=== PATIENT | male | born 1955 | race Caucasian/White ===

== ENCOUNTER 2019-09-09 19:38 | Inpatient (IN) ==
[2019-09-09] MEDS ORDERED: 0.9 % SODIUM CHLORIDE 1,000 ML IV ONE (19:55)
[2019-09-09] MEDS ORDERED: ALBUTEROL SULFATE 200 PUFF INHALER INH PRN ×2 (19:56→23:47)
--- NOTE | 2019-09-09 19:58 | Emergency Department Note ---
SOB HPI - General Chief Complaint: Shortness of Breath/Dyspnea Stated Complaint: increased cough and shortness of breathe Time Seen by Provider: 09/09/19 19:43 Source: patient Mode of arrival: ambulatory Limitations: no limitations - History of Present Illness 64-year-old male returns to the ER after coming in last night for worsening dyspnea. He was diagnosed with pneumonia and started on azithromycin. However he could not catch his breath and so came back tonight. Denies fever nausea vomiting. He does not smoke I reviewed the note from Dr. pritchett last night MD Complaint: shortness of breath - Related Data Home Medications Medication Instructions Recorded Confirmed nitroglycerin 0.4 mg sublingual 0.4 mg SUBLINGUAL Q5-15M PRN 02/22/19 09/06/19 tablet glucagon 1 mg injection kit 1 mg .ROUTE .COMPLEX 04/14/19 09/09/19 triamcinolone acetonide 55 mcg 1 spray INTRANASAL QDAY PRN 04/14/19 09/10/19 nasal spray aerosol Insulin Glargine,Hum.rec.anlog 40 unit SUBCUT QDAY 08/06/19 09/09/19 [Lantus Solostar U-100 Insulin] Previous Rx's Medication Instructions Recorded aspirin 81 mg tablet,delayed 81 mg PO QDAY #90 tab 04/27/19 release folic acid 1 mg tablet 1 mg PO QDAY #90 tab 04/27/19 albuterol sulfate 90 mcg/actuation 2 puff INHALATION Q6H PRN #8.5 g 05/01/19 aerosol inhaler carvedilol 25 mg tablet 25 mg PO BID #180 tab 06/20/19 insulin aspart U-100 100 unit/mL 3 unit SUB-Q TID #15 ml 06/20/19 (3 mL) subcutaneous pen lansoprazole 15 mg capsule,delayed 30 mg PO QDAY #60 cap 06/20/19 release losartan 100 mg tablet 100 mg PO QDAY #90 tab 06/20/19 paroxetine HCl 10 mg tablet 10 mg PO QHS #30 tab 06/20/19 pen needle, diabetic 32 gauge x See Rx Instructions .ROUTE 07/10/19" .MEDSUPPLY #100 each lancets 30 gauge See Rx Instructions .ROUTE 08/03/19 .MEDSUPPLY #100 each indomethacin 50 mg capsule 50 mg PO .COMPLEX #30 cap 08/25/19 furosemide 20 mg tablet 20 mg PO BID #60 tab 09/06/19 gabapentin 300 mg capsule 300 mg PO QHS #30 cap 09/06/19 hydrocodone 5 mg-acetaminophen 325 1 tab PO Q4H PRN #180 tab 09/06/19 mg tablet potassium chloride 10 mEq 10 meq PO BID #60 cap 09/06/19 capsule,extended release Azithromycin [Zithromax] 0 mg PO DAILY #6 tab 09/08/19 Ondansetron [Zofran ODT] 4 mg SL Q4-6HP PRN #10 tab 09/08/19 Allergies Allergy/AdvReac Type Severity Reaction Status Date / Time NEREYDA Inhibitors Allergy Severe Cough Verified 09/08/19 12:39 Aliskiren [From Valturna] Allergy Severe rash, Verified 09/08/19 12:39 throat swelling ciprofloxacin [From Cipro] Allergy Severe nausea/vomi Verified 09/08/19 12:39 tting valsartan [From Valturna] Allergy Severe rash, Verified 09/08/19 12:39 throat swelling fluticasone [From Flonase] Allergy Intermediate made Verified 09/08/19 12:39 patient sick bupropion [From Wellbutrin] Allergy Unknown Unknown Verified 09/08/19 12:39 Cnvnutn-Vml-Brz Reductase Allergy Unknown Unknown Verified 09/08/19 12:39 Inhibitor Review of Systems All systems ED: reviewed and negative except as stated. Past Medical History - Past Medical History Attestation: Yes: The following information was validated with the patient. [facility] Narrative: Family History (Last Reviewed 09/06/19 @ 14:20 by ELÍAS Pinzon) Father Lung cancer Mother CAD (coronary artery disease) Medical History (Last Reviewed 09/06/19 @ 14:20 by ELÍAS Pinzon) Left knee DJD (Chronic) Diverticulitis (Chronic) Osteoarthritis (Chronic) Allergic rhinitis (Chronic) Lipoma (Chronic) Anemia (Chronic) Erectile dysfunction (Chronic) Asthma (Chronic) Hypoglycemia (Chronic) Visual impairment (Chronic) Closed fracture of navicular bone of wrist (Chronic) Situational anxiety (Chronic) Muscle spasm (Chronic) Fatigue (Chronic) Carpal tunnel syndrome (Chronic) MRSA (methicillin resistant staph aureus) culture positive (Chronic) Panic attack (Chronic) DDD (degenerative disc disease), cervical (Chronic) Cervical radiculopathy (Chronic) Spondylolisthesis, thoracolumbar region (Chronic) DDD (degenerative disc disease), lumbosacral (Chronic) Spinal stenosis of lumbar region (Chronic) Squamous cell carcinoma in situ of skin (Chronic) Candidal dermatitis (Chronic) Hypertension (Chronic) Depression with anxiety (Chronic) Diabetes mellitus (Chronic) Hyperlipidemia (Chronic) Neoplasm of uncertain behavior of skin (Chronic) Encounter for long-term (current) use of insulin (Chronic) Past Surgical History (Last Reviewed 09/06/19 @ 14:20 by ELÍAS Pinzon) History of back surgery (Chronic) History of knee surgery (Chronic) - Social History smoking status: Never smoker Physical Exam Normocephalic atraumatic. Conjunctive are clear sclerae white nonicteric. No nasal discharge or congestion. Oropharynx is pink and moist. Neck is supple without lymphadenopathy or thyromegaly. Heart is with mild tachycardia. I cannot hear a murmur. Lungs are clear to auscultation but he does have an end expiratory wheeze. When he is talking his oxygen saturations dropped down into the high 80s and so he requires oxygen. Abdomen soft nontender nondistended. He is got trace to +1 pedal edema bilaterally. Alert and able to answer questions appropriately Limitations: no limitations Course Vital Signs Temperature 98.8 F 09/09/19 19:39 Pulse Rate 100 H 09/09/19 19:39 Respiratory Rate 22 09/09/19 19:39 Blood Pressure 191/68 09/09/19 19:39 Pulse Oximetry (%) 93 09/09/19 19:39 Temperature 98.8 F 09/09/19 19:39 Pulse Rate 102 H 09/10/19 02:01 Respiratory Rate 18 09/10/19 02:01 Blood Pressure 167/89 09/10/19 02:01 Pulse Oximetry (%) 97 09/10/19 02:01 Shortness of Breath/Dyspnea - Lab Data Lab results reviewed: Yes I reviewed the patient's lab results. Result diagrams: 09/09/19 20:05 09/10/19 00:10 Lab Results 09/09/19 09/09/19 09/09/19 Range/Units 20:05 20:05 20:05 WBC 15.9 H (4.50-11.00) K/mcL RBC 3.71 L (4.63-6.08) M/mcL Hgb 11.3 L (13.7-17.5) g/dL Hct 36.2 L (40.1-51.0) % MCV 97.6 (80.0-100.0) fL MCH 30.5 (26.0-34.0) pg MCHC 31.2 (31.0-36.0) g/dL RDW 13.9 (11.5-14.5) % Plt Count 273 (140-440) K/mcL MPV 9.9 (7.4-10.4) fL Gran % 87.2 H (38.0-78.0) % Lymph % (Auto) 5.7 L (15.5-49.0) % [place] % (Auto) 5.5 (1.0-12.0) % Eos % (Auto) 1.3 (0.0-7.0) % Baso % (Auto) 0.3 (0.0-2.0) % Gran # 13.88 H (1.80-8.00) K/mcL Lymph # (Auto) 0.90 L (1.50-4.80) K/mcL [place] # (Auto) 0.87 (0.10-0.90) K/mcL Eos # (Auto) 0.20 (0.00-0.70) K/mcL Baso # (Auto) 0.05 (0.00-0.30) K/mcL VBG Lactic Acid 1.3 (0.5-2.0) mmol/L Sodium 133 (133-145) mmol/L Potassium 4.3 (3.3-5.1) mmol/L Chloride 96 (96-108) mmol/L Carbon Dioxide 27 (22-30) mmol/L Anion Gap 10.0 (8-16) BUN 12 (8-23) mg/dl Creatinine 0.9 (0.7-1.2) mg/dl GFR Calculation 89 Glucose 189 H (70-105) mg/dL Calcium 8.6 (8.6-10.4) mg/dl Magnesium 2.2 (1.6-2.5) mg/dL Total Bilirubin 0.5 (0.0-1.0) mg/dL AST 54 H (0-37) U/l ALT 53 H (0-40) U/l Alkaline Phosphatase 124 H (39-117) U/L Troponin T (0-0.03) ng/ml NT-Pro-B Natriuret Pep (0-125) pg/ml Total Protein 7.0 (5.9-8.4) gm/dL Albumin 3.8 (3.2-5.2) gm/dL Globulin 3.2 (2.2-3.7) gm/dL Albumin/Globulin Ratio 1.2 (1.0-2.3) Lipase 13 (7-60) U/L Procalcitonin (<0.10) ng/mL 09/09/19 09/09/19 09/09/19 Range/Units 20:05 20:05 20:05 WBC (4.50-11.00) K/mcL RBC (4.63-6.08) M/mcL Hgb (13.7-17.5) g/dL Hct (40.1-51.0) % MCV (80.0-100.0) fL MCH (26.0-34.0) pg MCHC (31.0-36.0) g/dL RDW (11.5-14.5) % Plt Count (140-440) K/mcL MPV (7.4-10.4) fL Gran % (38.0-78.0) % Lymph % (Auto) (15.5-49.0) % [place] % (Auto) (1.0-12.0) % Eos % (Auto) (0.0-7.0) % Baso % (Auto) (0.0-2.0) % Gran # (1.80-8.00) K/mcL Lymph # (Auto) (1.50-4.80) K/mcL [place] # (Auto) (0.10-0.90) K/mcL Eos # (Auto) (0.00-0.70) K/mcL Baso # (Auto) (0.00-0.30) K/mcL VBG Lactic Acid (0.5-2.0) mmol/L Sodium (133-145) mmol/L Potassium (3.3-5.1) mmol/L Chloride (96-108) mmol/L Carbon Dioxide (22-30) mmol/L Anion Gap (8-16) BUN (8-23) mg/dl Creatinine (0.7-1.2) mg/dl GFR Calculation Glucose (70-105) mg/dL Calcium (8.6-10.4) mg/dl Magnesium (1.6-2.5) mg/dL Total Bilirubin (0.0-1.0) mg/dL AST (0-37) U/l ALT (0-40) U/l Alkaline Phosphatase (39-117) U/L Troponin T < 0.01 (0-0.03) ng/ml NT-Pro-B Natriuret Pep 509.5 H (0-125) pg/ml Total Protein (5.9-8.4) gm/dL Albumin (3.2-5.2) gm/dL Globulin (2.2-3.7) gm/dL Albumin/Globulin Ratio (1.0-2.3) Lipase (7-60) U/L Procalcitonin 0.12 (<0.10) ng/mL 09/10/19 Range/Units 00:10 WBC (4.50-11.00) K/mcL RBC (4.63-6.08) M/mcL Hgb (13.7-17.5) g/dL Hct (40.1-51.0) % MCV (80.0-100.0) fL MCH (26.0-34.0) pg MCHC (31.0-36.0) g/dL RDW (11.5-14.5) % Plt Count (140-440) K/mcL MPV (7.4-10.4) fL Gran % (38.0-78.0) % Lymph % (Auto) (15.5-49.0) % [place] % (Auto) (1.0-12.0) % Eos % (Auto) (0.0-7.0) % Baso % (Auto) (0.0-2.0) % Gran # (1.80-8.00) K/mcL Lymph # (Auto) (1.50-4.80) K/mcL [place] # (Auto) (0.10-0.90) K/mcL Eos # (Auto) (0.00-0.70) K/mcL Baso # (Auto) (0.00-0.30) K/mcL VBG Lactic Acid (0.5-2.0) mmol/L Sodium 136 (133-145) mmol/L Potassium 4.2 (3.3-5.1) mmol/L Chloride 99 (96-108) mmol/L Carbon Dioxide 27 (22-30) mmol/L Anion Gap 10.0 (8-16) BUN 11 (8-23) mg/dl Creatinine 0.7 (0.7-1.2) mg/dl GFR Calculation 99 Glucose 57 L (70-105) mg/dL Calcium 8.3 L (8.6-10.4) mg/dl Magnesium (1.6-2.5) mg/dL Total Bilirubin 0.7 (0.0-1.0) mg/dL AST 62 H (0-37) U/l ALT 53 H (0-40) U/l Alkaline Phosphatase 109 (39-117) U/L Troponin T (0-0.03) ng/ml NT-Pro-B Natriuret Pep (0-125) pg/ml Total Protein 6.9 (5.9-8.4) gm/dL Albumin 3.7 (3.2-5.2) gm/dL Globulin 3.2 (2.2-3.7) gm/dL Albumin/Globulin Ratio 1.2 (1.0-2.3) Lipase (7-60) U/L Procalcitonin (<0.10) ng/mL - Radiology Data Radiology results reviewed: Yes I reviewed the patient's radiology results. Chest x-ray is essentially unchanged from yesterday-it is compatible with a COVID pneumonia - EKG Data EKG attestation: Yes I reviewed and interpreted this EKG., Yes There are no EKG findings of acute coronary syndrome EKG results narrative: ST segment elevation is upsloping is noted in the anterior leads. However this does not meet criteria for STEMI. Likely benign early repolarization. Reviewed EKGs from yesterday. Today's EKG shows similar ST morphology in the septal anterolateral leads-V1 to V6. Today's EKG could be slightly improved Disposition Pt seen by PORTFOLIO MANAGER/PA only: No Clinical Impression: Pneumonia due to COVID-19 virus, Hypoxia Summary: COVID-19 testing is pending. Will order respiratory panel. He is requiring oxygen now and so will require admission. Repeat x-ray and laboratory. Therapeutic trial of albuterol inhaler but not nebulizer Albuterol inhaler seem to help. Arterial blood gas shows hyperventilation. EKG shows repolarization abnormality, but actually looks improved from yesterday-we will order troponin and BNP though just to be sure-troponin was normal yesterday. Chest x-ray is again compatible with a COVID pneumonia. Laboratory shows leukocytosis Discussed findings with patient and with hospitalist Dr. bella. He agreed to accept the patient for further care and evaluation in the hospital Disposition: Xfer As Inpt ([facility]) Condition: Serious
[2019-09-09 21:31] LABS: ALT/SGPT 53 U/l (0-40); AST/SGOT 54 U/l (0-37); Albumin 3.8 gm/dL (3.2-5.2); Albumin/Globulin Ratio 1.2 (1.0-2.3); Alkaline Phosphatase 124 U/L (39-117); Bilirubin,Total 0.5 mg/dL (0.0-1.0); Blood Urea Nitrogen 12 mg/dl (8-23); Calcium 8.6 mg/dl (8.6-10.4); Carbon Dioxide 27 mmol/L (22-30); Chloride 96 mmol/L (96-108); Globulin 3.2 gm/dL (2.2-3.7); Glomerular Filtration Rate 89; Glucose 189 mg/dL (70-105)
[2019-09-09 22:10] LABS: Basophils # (Auto) 0.05 K/mcL (0.00-0.30); Basophils % (Auto) 0.3 % (0.0-2.0); Eosinophils % (Auto) 1.3 % (0.0-7.0); Granulocytes % (Auto) 87.2 % (38.0-78.0); Hematocrit 36.2 % (40.1-51.0); Hemoglobin 11.3 g/dL (13.7-17.5); Lymphocytes % (Auto) 5.7 % (15.5-49.0); Mean Cell Volume 97.6 fL (80.0-100.0); Mean Corpuscular HGB Conc 31.2 g/dL (31.0-36.0); Mean Platelet Volume 9.9 fL (7.4-10.4); Monocytes # (Auto) 0.87 K/mcL (0.10-0.90); Monocytes % (Auto) 5.5 % (1.0-12.0); Platelet Count 273 K/mcL (140-440); RBC 3.71 M/mcL (4.63-6.08); Red Cell Distribution Width 13.9 % (11.5-14.5); WBC 15.9 K/mcL (4.50-11.00)
[2019-09-09 22:52] LABS: proBNP 509.5 pg/ml (0-125)
[2019-09-09] MEDS ORDERED: DEXTROSE 31 GM ORAL.SUSP PO PRN (23:37)
[2019-09-09] MEDS ORDERED: PROMETHAZINE 25 MG TABLET PO PRN (23:37)
[2019-09-09] MEDS ORDERED: DEXTROSE 50% 50 ML VIAL IV PRN (23:37)
[2019-09-09] MEDS ORDERED: cefTRIAXone 2 GM in DEXTROSE 5% IN WATER 50 ML IV SCH (23:45)
[2019-09-09] MEDS ORDERED: 0.9 % SODIUM CHLORIDE 1,000 ML IV SCH (23:45)
[2019-09-09] MEDS ORDERED: AZITHROMYCIN 500 MG in DEXTROSE 5% IN WATER 250 ML IV SCH (23:45)
[2019-09-09] MEDS ORDERED: METOPROLOL TARTRATE 25 MG TABLET PO SCH (23:57)
[2019-09-09] MEDS ORDERED: hydrALAZINE 20 MG/ML VIAL IV PRN (23:58)
--- NOTE | 2019-09-10 00:14 | Internal Med History&Physical ---
Medical - H&P: [facility] Patient information: Note initiated : 09/10/19 at 12:11 am Service Date, if different from initiated Date: [] Patient: Tyler Segovia 64 y/o M admitted on for increased cough and shortness of breath. Chief Complaint: [SOB x 2 days] History of present illness: Patient is a 64-year-old male with a history diabetes, asthma, high blood pressure, and depression who presented to the ER due to shortness of breath. Patient states that he has been having shortness of breath and sore throat over the past 2 days associated with cough with small amount of greenish sputum and voice change. He visited the ER yesterday and was diagnosed with pneumonia. He was discharged to home from the ER with azithromycin. He came back today because of worsening of shortness of breath. In the ER, she was found to have oxygen desaturation, 80+% when he is talking. When I saw this patient in the ER, other than symptoms mentioned above, he denied headache, dizziness, chest pain, abdominal pain, nausea, vomiting, or dysuria. Review of systems: Positive for the symptoms in HP all other systems were reviewed and are negative. Medical - H&P: PMH Medical history: diabetes, asthma, high blood pressure, and depression Family history: reviewed and not pertinent (Father had lung cancer; mother had CAD) Have you smoked in the last 12 months: No Drug use: none Alcohol use: none Medical - H&P: Meds Home Medications Medication Instructions Recorded Confirmed Type nitroglycerin 0.4 mg sublingual 0.4 mg SUBLINGUAL Q5-15M PRN 02/22/19 09/06/19 History tablet glucagon 1 mg injection kit 1 mg .ROUTE .COMPLEX 04/14/19 09/09/19 History triamcinolone acetonide 55 mcg 1 spray INTRANASAL QDAY PRN 04/14/19 09/06/19 History nasal spray aerosol aspirin 81 mg tablet,delayed 81 mg PO QDAY #90 tab 04/27/19 09/09/19 Rx release folic acid 1 mg tablet 1 mg PO QDAY #90 tab 04/27/19 09/09/19 Rx albuterol sulfate 90 mcg/actuation 2 puff INHALATION Q6H PRN #8.5 g 05/01/19 09/09/19 Rx aerosol inhaler carvedilol 25 mg tablet 25 mg PO BID #180 tab 06/20/19 09/09/19 Rx insulin aspart U-100 100 unit/mL 3 unit SUB-Q TID #15 ml 06/20/19 09/09/19 Rx (3 mL) subcutaneous pen lansoprazole 15 mg capsule,delayed 30 mg PO QDAY #60 cap 06/20/19 09/06/19 Rx release losartan 100 mg tablet 100 mg PO QDAY #90 tab 06/20/19 09/06/19 Rx paroxetine HCl 10 mg tablet 10 mg PO QHS #30 tab 06/20/19 09/06/19 Rx pen needle, diabetic 32 gauge x See Rx Instructions .ROUTE 07/10/19 09/06/19 Rx 5/32" .MEDSUPPLY #100 each lancets 30 gauge See Rx Instructions .ROUTE 08/03/19 09/09/19 Rx .MEDSUPPLY #100 each Insulin Glargine,Hum.rec.anlog 40 unit SUBCUT QDAY 08/06/19 09/09/19 History [Lantus Solostar U-100 Insulin] indomethacin 50 mg capsule 50 mg PO .COMPLEX #30 cap 08/25/19 09/09/19 Rx furosemide 20 mg tablet 20 mg PO BID #60 tab 09/06/19 09/09/19 Rx gabapentin 300 mg capsule 300 mg PO QHS #30 cap 09/06/19 09/09/19 Rx hydrocodone 5 mg-acetaminophen 325 1 tab PO Q4H PRN #180 tab 09/06/19 09/09/19 Rx mg tablet potassium chloride 10 mEq 10 meq PO BID #60 cap 09/06/19 09/06/19 Rx capsule,extended release Azithromycin [Zithromax] 0 mg PO DAILY #6 tab 09/08/19 09/09/19 Rx Ondansetron [Zofran ODT] 4 mg SL Q4-6HP PRN #10 tab 09/08/19 Rx Allergies Allergy/AdvReac Type Severity Reaction Status Date / Time NEREYDA Inhibitors Allergy Severe Cough Verified 09/08/19 12:39 Aliskiren [From Valturna] Allergy Severe rash, Verified 09/08/19 12:39 throat swelling ciprofloxacin [From Cipro] Allergy Severe nausea/vomi Verified 09/08/19 12:39 tting valsartan [From Valturna] Allergy Severe rash, Verified 09/08/19 12:39 throat swelling fluticasone [From Flonase] Allergy Intermediate made Verified 09/08/19 12:39 patient sick bupropion [From Wellbutrin] Allergy Unknown Unknown Verified 09/08/19 12:39 Ininplo-Iau-Wgg Reductase Allergy Unknown Unknown Verified 09/08/19 12:39 Inhibitor Medical - H&P: Exam - Constitutional Vitals: Temp Pulse Resp BP Pulse Ox 98.8 F 105 H 21 161/67 100 09/09/19 19:39 09/09/19 22:49 09/09/19 22:49 09/09/19 22:16 09/09/19 22:49 - Other Additional findings: General - No acute distress Eyes - PERRLA, EOM intact ENT no rhinorrhea, no noticeable or palpable swelling, no redness or rash around throat or on face Neck supple, no JVD, no thyromegaly. course voice Respiratory: mild wheezing and rhonchi. Cardiovascular - RRR no m/r/g, GI - Normal bowel sounds, no distended, soft. Extremeties - pitting edema+ in both legs; No cyanosis or clubbing Hemo/lymphatic/immune no lymphadenopathy Neurological Alert and oriented x 3, no focal neurological deficits. Psychiatry flat affect Medical - H&P: Reslt - Labs CBC & Chem 7: 09/09/19 20:05 09/09/19 20:05 Labs: Short CBC 09/09/19 Range/Units 20:05 WBC 15.9 H (4.50-11.00) K/mcL Hgb 11.3 L (13.7-17.5) g/dL Hct 36.2 L (40.1-51.0) % Plt Count 273 (140-440) K/mcL BMP 09/09/19 20:05 Sodium 133 Potassium 4.3 Chloride 96 Carbon Dioxide 27 BUN 12 Creatinine 0.9 Glucose 189 H Calcium 8.6 Cardiac Enzymes 09/09/19 Range/Units 20:05 Troponin T < 0.01 (0-0.03) ng/ml Liver Function 09/09/19 Range/Units 20:05 Total Bilirubin 0.5 (0.0-1.0) mg/dL AST 54 H (0-37) U/l ALT 53 H (0-40) U/l Alkaline Phosphatase 124 H (39-117) U/L Albumin 3.8 (3.2-5.2) gm/dL Medical - H&P: A/P - Narrative A/P Narrative: Assessment: 1. Acute hypoxic respiratory failure 2. Possible pneumonia, Covid 19? 3. Hx of asthma 4. DM 5. HTN 6. Elevation of liver enzymes 7. Depression 8. CHF? Plan: 1. In the ER, she was found to have oxygen desaturation, 80+% when he is talking. Pulse ox ox therapy Albuterol aerosol inhaler 2. CXR - possible pneumonia - Covid 19? Covid 19 was sent yesterday Respiratory panel MRSA screen Procalcitonin 0.12 CRP troponin negative yesterday and today Blood culture and sputum culture Ceftriaxone and azithromycin 3. Diabetic diet Continue Lantus 40 mg daily Insulin sliding scale Adjust insulin based blood glucose levels Hemoglobin A1c 4. Repeat the liver enzymes in the morning 7. Continue home medication paroxetine for depression 8. Continue losartan 100 mg daily. Carvedilol is on hold. Added metoprolol 12.5 mg twice daily and hydralazine as needed 9. BNP 509. Patient home medications including Lasix which he is on hold Echocardiogram Intake and output Daily weight 10. DVT prophylaxis: Lovenox CODE STATUS: Full
[2019-09-10] MEDS ORDERED: DEXTROSE 31 GM ORAL.SUSP PO PRN (00:23)
[2019-09-10] MEDS ORDERED: PROMETHAZINE 25 MG TABLET PO PRN (00:23)
[2019-09-10] MEDS ORDERED: ALBUTEROL SULFATE 200 PUFF INHALER INH PRN (00:23)
[2019-09-10] MEDS ORDERED: DEXTROSE 50% 50 ML VIAL IV PRN (00:23)
[2019-09-10 01:31] LABS: ALT/SGPT 53 U/l (0-40); AST/SGOT 62 U/l (0-37); Albumin 3.7 gm/dL (3.2-5.2); Albumin/Globulin Ratio 1.2 (1.0-2.3); Alkaline Phosphatase 109 U/L (39-117); Bilirubin,Total 0.7 mg/dL (0.0-1.0); Blood Urea Nitrogen 11 mg/dl (8-23); Calcium 8.3 mg/dl (8.6-10.4); Carbon Dioxide 27 mmol/L (22-30); Chloride 99 mmol/L (96-108); Globulin 3.2 gm/dL (2.2-3.7); Glomerular Filtration Rate 99; Glucose 57 mg/dL (70-105)
[2019-09-10] MEDS: hydrALAZINE 20 MG/ML VIAL IV PRN ×2 (05:31→16:03)
[2019-09-10] MEDS ORDERED: hydrALAZINE 20 MG/ML VIAL ONE (05:32)
[2019-09-10 05:35] LABS: ALT/SGPT 50 U/l (0-40); AST/SGOT 55 U/l (0-37); Albumin 3.7 gm/dL (3.2-5.2); Albumin/Globulin Ratio 1.3 (1.0-2.3); Alkaline Phosphatase 105 U/L (39-117); Bilirubin,Total 0.6 mg/dL (0.0-1.0); Blood Urea Nitrogen 9 mg/dl (8-23); Calcium 8.2 mg/dl (8.6-10.4); Carbon Dioxide 29 mmol/L (22-30); Chloride 98 mmol/L (96-108); Globulin 2.9 gm/dL (2.2-3.7); Glomerular Filtration Rate 94; Glucose 110 mg/dL (70-105)
[2019-09-10] MEDS: 0.9 % SODIUM CHLORIDE 10 ML SYRINGE IV SCH ×3 (05:36→22:10)
[2019-09-10] MEDS ORDERED: 0.9 % SODIUM CHLORIDE 10 ML SYRINGE IV SCH (06:00)
[2019-09-10] MEDS ORDERED: INSULIN LISPRO 1 UNIT/0.01 ML UNIT SQ SCH (07:30)
[2019-09-10] MEDS ORDERED: PANTOPRAZOLE 40 MG TABLET PO SCH (07:30)
--- NOTE | 2019-09-10 07:42 | XRay Report ---
INDICATION: dyspnea TECHNIQUE: AP portable upright chest x-ray COMPARISON: None FINDINGS: Lungs:Inspiration is suboptimal. Present examination demonstrates mild right perihilar and basilar parenchymal density. No focal parenchymal consolidation. Pneumonia is possible. Follow-up PA and lateral chest x-ray or CT scan recommended if clinically appropriate. There is no focal pulmonary parenchymal mass Heart, vascular:No significant cardiomegaly. Pulmonary vascularity is normal. No pulmonary edema or pulmonary congestion Mediastinum, rao:No mediastinal widening. No hilar mass Pleura:No pleural fluid. No pleural-based mass or calcification Skeletal:Negative. IMPRESSION: 1. Suboptimal inspiration 2. Possible subtle right lung infiltrates. Recommend follow-up as above Interpreted and Authenticated by: Jaciel Balderrama 09/10/19
[2019-09-10] MEDS: INSULIN LISPRO 1 UNIT/0.01 ML UNIT SQ SCH ×4 (07:47→22:10)
[2019-09-10] MEDS: FOLIC ACID 1 MG TABLET PO SCH (08:29)
[2019-09-10] MEDS: INSULIN GLARGINE, HUMAN 1 UNIT/0.01 ML SQ SCH (08:29)
[2019-09-10] MEDS: amLODIPine 5 MG TABLET PO SCH (08:29)
[2019-09-10] MEDS: DOCUSATE SODIUM 100 MG CAPSULE PO SCH ×2 (08:29→21:39)
[2019-09-10] MEDS: LOSARTAN 50 MG TABLET PO SCH (08:30)
[2019-09-10] MEDS: METOPROLOL TARTRATE 25 MG TABLET PO SCH ×2 (08:30→21:38)
[2019-09-10] MEDS: PANTOPRAZOLE 40 MG TABLET PO SCH (08:30)
[2019-09-10] MEDS: ASPIRIN 81 MG TAB.CHEW PO SCH (08:30)
[2019-09-10] MEDS: MUPIROCIN OINT 2% 22GM NARES SCH ×2 (08:30→21:39)
[2019-09-10] MEDS: ENOXAPARIN 40 MG/0.4 ML SYRINGE SQ SCH (08:30)
[2019-09-10] MEDS ORDERED: METOPROLOL TARTRATE 25 MG TABLET PO SCH (09:00)
[2019-09-10] MEDS ORDERED: LOSARTAN POTASSIUM 100 MG PO SCH (09:00)
[2019-09-10] MEDS ORDERED: NON FORMULARY MEDICATION 1 DOSE MISCELL (Aspirin [St. Joseph Aspirin Ec] 81 MG) PO SCH (09:00)
[2019-09-10] MEDS ORDERED: FOLIC ACID 1 MG TABLET PO SCH (09:00)
[2019-09-10] MEDS ORDERED: ENOXAPARIN 40 MG/0.4 ML SYRINGE SQ SCH (09:00)
[2019-09-10] MEDS ORDERED: DOCUSATE SODIUM 100 MG CAPSULE PO SCH (09:00)
[2019-09-10] MEDS ORDERED: BENZONATATE 100 MG CAPSULE PO PRN (09:27)
[2019-09-10] MEDS: POTASSIUM CHLORIDE 10 MEQ TABLET PO SCH ×3 (10:49→17:54)
[2019-09-10] MEDS ORDERED: IOPAMIDOL 100 ML BOTTLE IV ONE (11:26)
--- NOTE | 2019-09-10 12:24 | Cat Scan Report ---
INDICATION: difficulty swallowing, pain in neck COMPARISON: None TECHNIQUE: Axial contrast enhanced images through the neck. Sagittally and coronally reformatted images. Aml Isovue 370 injected intravenously. FINDINGS: Vascular:Common carotid arteries and internal carotid arteries are patent bilaterally. No significant atherosclerotic calcification or evidence for stenosis. There is no dissection. Internal jugular veins are patent Lymphatic:No pathologic lymphadenopathy. Internal jugular chains are negative. No supraclavicular adenopathy Mucosa:No mucosal mass. Glottis and epiglottis are normal. The glottic soft tissues are negative. Nasopharynx, oropharynx, hypopharynx are negative. No peritonsillar mass or evidence for abscess Salivary glands:Parotid glands and submandibular glands are negative bilaterally. No focal mass. No evidence for sialoadenitis. Soft Tissue:No solid or cystic soft tissue mass. No abscess. No focal abnormality Lung Apices:No pulmonary parenchymal density. No pneumothorax. No focal abnormality. Thyroid:Negative. No detectable nodule Musculoskeletal:Previous anterior discectomy and spinal fusion from C3 through C5. Degenerative disc disease at C5-6, C6-7. No fracture. No lytic lesion. Paranasal sinuses and temporal bones: Temporal bones are negative. No fracture. No mastoiditis. Incidental note is made of a small retention cyst or polyp in the left maxillary sinus. Maxillary sinuses are otherwise negative IMPRESSION: Negative CT scan of the soft tissue neck. There is no mass or abscess. No acute abnormality The exam was performed using radiation dose optimization techniques including, but not limited to, automated exposure control, adjustment of the mA and/or kV according to patient size and use of iterative reconstruction technique. Interpreted and Authenticated by: Jaciel Balderrama 09/10/19
[2019-09-10] MEDS: cefTRIAXone 2 GM in DEXTROSE 5% IN WATER 50 ML IV SCH (15:12)
[2019-09-10] MEDS: AZITHROMYCIN 500 MG in DEXTROSE 5% IN WATER 250 ML IV SCH (15:55)
[2019-09-10] MEDS ORDERED: 0.9 % SODIUM CHLORIDE 500 ML IV ONE (20:56)
[2019-09-10] MEDS ORDERED: GABAPENTIN 300 MG CAPSULE PO SCH (21:00)
[2019-09-10] MEDS ORDERED: PAROXETINE HCL 10 MG PO SCH (21:00)
[2019-09-10] MEDS: PARoxetine 20 MG TABLET PO SCH (21:35)
[2019-09-10] MEDS: GABAPENTIN 300 MG CAPSULE PO SCH (21:39)
[2019-09-10 23:04] LABS: Basophils # (Auto) 0.05 K/mcL (0.00-0.30); Basophils % (Auto) 0.2 % (0.0-2.0); Eosinophils # (Auto) 0.11 K/mcL (0.00-0.70); Eosinophils % (Auto) 0.5 % (0.0-7.0); Granulocytes % (Auto) 90.3 % (38.0-78.0); Hemoglobin 10.7 g/dL (13.7-17.5); Lymphocytes # (Auto) 0.57 K/mcL (1.50-4.80); Lymphocytes % (Auto) 2.3 % (15.5-49.0); Mean Cell Volume 105.1 fL (80.0-100.0); Mean Corpuscular HGB Conc 30.6 g/dL (31.0-36.0); Mean Platelet Volume 10.5 fL (7.4-10.4); Monocytes # (Auto) 1.63 K/mcL (0.10-0.90); Monocytes % (Auto) 6.7 % (1.0-12.0); Platelet Count 252 K/mcL (140-440); RBC 3.33 M/mcL (4.63-6.08); Red Cell Distribution Width 14.7 % (11.5-14.5); WBC 24.4 K/mcL (4.50-11.00)
[2019-09-10] MEDS ORDERED: cefTRIAXone 2 GM in DEXTROSE 5% IN WATER 50 ML IV SCH (23:45)
[2019-09-10] MEDS ORDERED: AZITHROMYCIN 500 MG in DEXTROSE 5% IN WATER 250 ML IV SCH (23:45)
[2019-09-11 05:27] LABS: Basophils # (Auto) 0.04 K/mcL (0.00-0.30); Basophils % (Auto) 0.3 % (0.0-2.0); Eosinophils # (Auto) 0.28 K/mcL (0.00-0.70); Eosinophils % (Auto) 1.8 % (0.0-7.0); Granulocytes % (Auto) 84.5 % (38.0-78.0); Hematocrit 34.2 % (40.1-51.0); Hemoglobin 10.7 g/dL (13.7-17.5); Lymphocytes # (Auto) 0.91 K/mcL (1.50-4.80); Lymphocytes % (Auto) 5.8 % (15.5-49.0); Mean Cell Volume 99.7 fL (80.0-100.0); Mean Corpuscular HGB Conc 31.3 g/dL (31.0-36.0); Mean Platelet Volume 10.4 fL (7.4-10.4); Monocytes # (Auto) 1.19 K/mcL (0.10-0.90); Monocytes % (Auto) 7.6 % (1.0-12.0); Platelet Count 241 K/mcL (140-440); RBC 3.43 M/mcL (4.63-6.08); Red Cell Distribution Width 14.5 % (11.5-14.5); WBC 15.7 K/mcL (4.50-11.00)
[2019-09-11] MEDS: 0.9 % SODIUM CHLORIDE 10 ML SYRINGE IV SCH ×3 (05:27→21:32)
[2019-09-11 05:48] LABS: ALT/SGPT 40 U/l (0-40); AST/SGOT 35 U/l (0-37); Albumin 3.4 gm/dL (3.2-5.2); Alkaline Phosphatase 111 U/L (39-117); Bilirubin,Total 0.6 mg/dL (0.0-1.0); Blood Urea Nitrogen 10 mg/dl (8-23); Calcium 8.6 mg/dl (8.6-10.4); Carbon Dioxide 27 mmol/L (22-30); Chloride 98 mmol/L (96-108); Globulin 3.3 gm/dL (2.2-3.7); Glomerular Filtration Rate 99; Glucose 169 mg/dL (70-105)
[2019-09-11] MEDS: PANTOPRAZOLE 40 MG TABLET PO SCH (07:03)
[2019-09-11] MEDS: INSULIN LISPRO 1 UNIT/0.01 ML UNIT SQ SCH ×7 (08:00→21:31)
[2019-09-11] MEDS: ALBUTEROL SULFATE 200 PUFF INHALER INH PRN ×2 (08:01→17:45)
[2019-09-11] MEDS: cefTRIAXone 2 GM in DEXTROSE 5% IN WATER 50 ML IV SCH (08:56)
[2019-09-11] MEDS: INSULIN GLARGINE, HUMAN 1 UNIT/0.01 ML SQ SCH (08:57)
[2019-09-11] MEDS: MUPIROCIN OINT 2% 22GM NARES SCH ×2 (08:58→21:31)
[2019-09-11] MEDS: ENOXAPARIN 40 MG/0.4 ML SYRINGE SQ SCH (08:58)
[2019-09-11] MEDS: METOPROLOL TARTRATE 25 MG TABLET PO SCH ×2 (08:58→21:31)
[2019-09-11] MEDS: ASPIRIN 81 MG TAB.CHEW PO SCH (08:58)
[2019-09-11] MEDS: FOLIC ACID 1 MG TABLET PO SCH (08:58)
[2019-09-11] MEDS: amLODIPine 5 MG TABLET PO SCH (08:58)
[2019-09-11] MEDS: DOCUSATE SODIUM 100 MG CAPSULE PO SCH ×2 (08:58→21:31)
[2019-09-11] MEDS: LOSARTAN 50 MG TABLET PO SCH (08:58)
[2019-09-11] MEDS: guaiFENesin/CODEINE 10 ML UDC PO PRN ×3 (09:17→23:58)
[2019-09-11] MEDS ORDERED: HYDROcodone/APAP 5/325MG TABLET PO PRN (09:26)
[2019-09-11] MEDS ORDERED: ONDANSETRON 4 MG ODT TABLET SL PRN (09:26)
--- NOTE | 2019-09-11 09:26 | Internal Med Progress Note ---
Medical - PN: Subj Patient information: Note initiated : 09/11/19 at 9:21 am Service Date, if different from initiated Date: [] Patient: Tyler Segovia 64 y/o M admitted on 09/10/19 for increased cough and shortness of breath. Chief Complaint: [] Interval history: Patient is a 64-year-old male with a history diabetes, asthma, high blood pressure, and depression who presented to the ER due to shortness of breath. Patient states that he has been having shortness of breath and sore throat over the past 2 days associated with cough with small amount of greenish sputum and voice change. He visited the ER yesterday and was diagnosed with pneumonia. He was discharged to home from the ER with azithromycin. He came back today because of worsening of shortness of breath. In the ER, she was found to have oxygen desaturation, 80+% when he is talking. When I saw this patient in the ER, other than symptoms mentioned above, he denied headache, dizziness, chest pain, abdominal pain, nausea, vomiting, or dysuria. 09/10-patient clinically improved. Improved dysphagia/neck pain and able to swallow better. Stable hemodynamics and vitals. CT soft tissue neck no evidence of abscess. White count downtrending from 24.4-15.7. GPC/GNR sputum exam. LFTs downtrending. On 1 L oxygen. Echo pending. COVID pending. - Constitutional Vitals: Vital Signs Temp Pulse Resp BP Pulse Ox 97.7 F 75 24 H 180/92 94 09/11/19 08:01 09/11/19 08:11 09/11/19 08:11 09/11/19 08:01 09/11/19 08:11 Period Temp Pulse Resp BP Sys/Jansen Pulse Ox Last 24 Hr 97.2 F-99.4 F 68-97 16-34 134-184/59-119 92-100 Intake and Output 09/10/19 09/11/19 09/11/19 21:59 05:59 13:59 Intake Total 660 300 Output Total 1700 550 Balance -1040 -250 Weight 254 lb 14.4 oz Intake & Output: Intake & Output 09/10/19 09/11/19 09/11/19 21:59 05:59 13:59 Intake Total 660 300 Output Total 1700 550 Balance -1040 -250 Weight 254 lb 14.4 oz Intake: IV 300 Zithromax 500 mg In Dextrose 5% 250 in Water 250 ml @ 250 mls/hr IV Q24H [facility] Rx#:[id number] Rocephin 2 gm In Dextrose 5% in 50 Water 50 ml @ 100 mls/hr IV Q24H [facility] Rx#:[id number] Oral 360 300 Output: Void Amount 1700 550 Other: Urine Appearance Clear Urine Color Bright Yellow Urine Odor Normal General appearance: no acute distress Exam: No telemetry events Alert oriented Hoarse voice Nondistended abdomen No anxiety Medical - PN: Obj Da - Labs CBC & Chem 7: 09/11/19 04:15 09/11/19 04:15 Labs: Abnormal Lab Results 09/11/19 09/11/19 09/10/19 04:15 04:15 03:50 WBC 15.7 H 24.4 H RBC 3.43 L 3.33 L Hgb 10.7 L 10.7 L Hct 34.2 L 35.0 L MCV 105.1 H MCHC 30.6 L RDW 14.7 H MPV 10.5 H Gran % 84.5 H 90.3 H Lymph % (Auto) 5.8 L 2.3 L Gran # 13.23 H 22.07 H Lymph # (Auto) 0.91 L 0.57 L [place] # (Auto) 1.19 H 1.63 H Glucose 169 H Calcium AST ALT Alkaline Phosphatase NT-Pro-B Natriuret Pep 09/10/19 09/10/19 09/09/19 03:50 00:10 20:05 WBC RBC Hgb Hct MCV MCHC RDW MPV Gran % Lymph % (Auto) Gran # Lymph # (Auto) [place] # (Auto) Glucose 110 H 57 L Calcium 8.2 L 8.3 L AST 55 H 62 H ALT 50 H 53 H Alkaline Phosphatase NT-Pro-B Natriuret Pep 509.5 H 09/09/19 09/09/19 20:05 20:05 WBC 15.9 H RBC 3.71 L Hgb 11.3 L Hct 36.2 L MCV MCHC RDW MPV Gran % 87.2 H Lymph % (Auto) 5.7 L Gran # 13.88 H Lymph # (Auto) 0.90 L [place] # (Auto) Glucose 189 H Calcium AST 54 H ALT 53 H Alkaline Phosphatase 124 H NT-Pro-B Natriuret Pep Meds: Medications Albuterol Sulfate (Ventolin) 1 puff INH Q4-6HP PRN PRN Reason: Shortness Of Breath Last Admin: 09/11/19 08:01 Dose: 1 puff Documented by: Amlodipine Besylate (Norvasc) 5 mg PO DAILY [facility] Last Admin: 09/11/19 08:58 Dose: 5 mg Documented by: Aspirin (Aspirin) 81 mg PO DAILY [facility] Last Admin: 09/11/19 08:58 Dose: 81 mg Documented by: Benzonatate (Tessalon) 100 mg PO TIDP PRN PRN Reason: Cough Dextrose (Dextrose 50%) 0 ml IV UD PRN PRN Reason: Hypoglycemia Diagnostic Test (Pha) (Accu-Chek) 1 each FS ACHS [facility] Last Admin: 09/11/19 07:59 Dose: 1 each Documented by: Docusate Sodium (Colace) 100 mg PO BID [facility] Last Admin: 09/11/19 08:58 Dose: 100 mg Documented by: Enoxaparin Sodium (Lovenox) 40 mg SQ DAILY [facility] Last Admin: 09/11/19 08:58 Dose: 40 mg Documented by: Folic Acid (Folic Acid) 1 mg PO QDAY [facility] Last Admin: 09/11/19 08:58 Dose: 1 mg Documented by: Gabapentin (Neurontin) 300 mg PO QHS [facility] Last Admin: 09/10/19 21:39 Dose: 300 mg Documented by: Glucose (Insta-Glucose) 15 gm PO PRN PRN PRN Reason: Hypoglycemia Guaifenesin/Codeine Phosphate (Robitussin Ac) 10 ml PO Q4HP PRN PRN Reason: Cough Last Admin: 09/11/19 09:17 Dose: 10 ml Documented by: Hydralazine HCl (Apresoline) 10 mg IV Q4HP PRN PRN Reason: Hypertension Last Admin: 09/10/19 16:03 Dose: 10 mg Documented by: Ceftriaxone Sodium 2 gm/ (Dextrose) 50 mls @ 100 mls/hr IV Q24H [facility]; Protocol Last Admin: 09/11/19 08:56 Dose: 100 mls/hr Documented by: Azithromycin 500 mg/ Dextrose 250 mls @ 250 mls/hr IV Q24H [facility]; Protocol Stop: 09/11/19 17:59 Last Infusion: 09/10/19 16:55 Dose: Infused Documented by: Insulin Glargine (Lantus) 40 unit SQ QDAY [facility] Last Admin: 09/11/19 08:57 Dose: 40 unit Documented by: Insulin Human Lispro (Humalog) 0 unit SQ ACHS [facility]; Protocol Last Admin: 09/11/19 08:00 Dose: Not Given Documented by: Losartan Potassium (Cozaar) 100 mg PO QDAY [facility] Last Admin: 09/11/19 08:58 Dose: 100 mg Documented by: Metoprolol Tartrate (Lopressor) 25 mg PO BID [facility] Last Admin: 09/11/19 08:58 Dose: 25 mg Documented by: Mupirocin (Bactroban Oint 2%) 1 dose NARES BID [facility] Last Admin: 09/11/19 08:58 Dose: 1 dose Documented by: Pantoprazole Sodium (Protonix) 40 mg PO QAMAC [facility] Last Admin: 09/11/19 07:03 Dose: 40 mg Documented by: Paroxetine HCl (Paxil) 10 mg PO QHS [facility] Last Admin: 09/10/19 21:35 Dose: 10 mg Documented by: Promethazine HCl (Phenergan) 12.5 mg PO Q6HP PRN; Protocol PRN Reason: Nausea And Vomiting Sodium Chloride (Saline Flush) 10 ml IV Q8 [facility] Last Admin: 09/11/19 05:27 Dose: 10 ml Documented by: Medical - PN: A/P - Time Spent With Patient Total time spent is greater than 50% in coordination of care (as documented) at patient's floor/unit and/or counseling patient: 25 - 35 minutes - Narrative A/P Narrative: * Right-sided pneumonia likely community-acquired versus COVID. On antibiotic coverage. White count downtrending. COVID test pending. Continue pulmonary toilet. * Acute hypoxia respiratory failure improving. Now on 1 L oxygen. * Dysphagia with laryngitis clinically improving on antibiotic coverage. No CT evidence of soft tissue abscess. * History of asthma continue bronchodilators * DM type II continue basal panel insulin * Elevated LFTs clinically improving * Suboptimally controlled hypertension restart home medications include losartan/Coreg. Systolics between 1 50-1 80. Use as needed hydralazine * GERD continue PPI * Anxiety disorder continue SSRI * Full code * Prophylaxis Lovenox Plan * Antibiotic coverage * Pre-existing mental condition management home meds * Optimize hypertension management * PT OT/nutrition support * Discharge planning Medical - PN: Qual - VTE Deep Vein Thrombosis/Pulmonary Embolism Present on Admission: No
[2019-09-11] MEDS ORDERED: GLUCAGON 1 MG SCH (09:30)
[2019-09-11] MEDS: AZITHROMYCIN 500 MG in DEXTROSE 5% IN WATER 250 ML IV SCH (09:35)
[2019-09-11] MEDS: POTASSIUM CHLORIDE 10 MEQ TABLET PO SCH ×2 (09:38→17:18)
[2019-09-11] MEDS: CARVEDILOL 12.5 MG TABLET PO SCH ×2 (09:38→17:18)
[2019-09-11] MEDS: PARoxetine 20 MG TABLET PO SCH (21:31)
[2019-09-11] MEDS: FUROSEMIDE 20 MG TABLET PO SCH (21:31)
[2019-09-11] MEDS: GABAPENTIN 300 MG CAPSULE PO SCH (21:31)
[2019-09-12] MEDS: guaiFENesin/CODEINE 10 ML UDC PO PRN ×3 (04:05→16:58)
[2019-09-12] MEDS: 0.9 % SODIUM CHLORIDE 10 ML SYRINGE IV SCH ×4 (05:08→22:15)
[2019-09-12 06:21] LABS: Basophils # (Auto) 0.03 K/mcL (0.00-0.30); Basophils % (Auto) 0.3 % (0.0-2.0); Eosinophils # (Auto) 0.29 K/mcL (0.00-0.70); Eosinophils % (Auto) 3.3 % (0.0-7.0); Granulocytes % (Auto) 72.3 % (38.0-78.0); Hematocrit 34.4 % (40.1-51.0); Hemoglobin 11.1 g/dL (13.7-17.5); Lymphocytes # (Auto) 1.05 K/mcL (1.50-4.80); Mean Cell Volume 97.7 fL (80.0-100.0); Mean Corpuscular HGB Conc 32.3 g/dL (31.0-36.0); Mean Platelet Volume 10.5 fL (7.4-10.4); Monocytes # (Auto) 1.06 K/mcL (0.10-0.90); Monocytes % (Auto) 12.1 % (1.0-12.0); Platelet Count 248 K/mcL (140-440); RBC 3.52 M/mcL (4.63-6.08); Red Cell Distribution Width 13.5 % (11.5-14.5); WBC 8.8 K/mcL (4.50-11.00)
[2019-09-12 06:45] LABS: ALT/SGPT 30 U/l (0-40); AST/SGOT 27 U/l (0-37); Albumin/Globulin Ratio 0.8 (1.0-2.3); Alkaline Phosphatase 103 U/L (39-117); Bilirubin,Total 0.5 mg/dL (0.0-1.0); Blood Urea Nitrogen 12 mg/dl (8-23); Calcium 8.6 mg/dl (8.6-10.4); Carbon Dioxide 25 mmol/L (22-30); Chloride 95 mmol/L (96-108); Globulin 3.8 gm/dL (2.2-3.7); Glomerular Filtration Rate 99; Glucose 146 mg/dL (70-105)
[2019-09-12] MEDS: PANTOPRAZOLE 40 MG TABLET PO SCH (06:57)
[2019-09-12] MEDS: INSULIN LISPRO 1 UNIT/0.01 ML UNIT SQ SCH ×7 (08:15→20:16)
[2019-09-12] MEDS: cefTRIAXone 2 GM in DEXTROSE 5% IN WATER 50 ML IV SCH (08:16)
[2019-09-12] MEDS: INSULIN GLARGINE, HUMAN 1 UNIT/0.01 ML SQ SCH (08:16)
[2019-09-12] MEDS: ENOXAPARIN 40 MG/0.4 ML SYRINGE SQ SCH (08:16)
[2019-09-12] MEDS: FOLIC ACID 1 MG TABLET PO SCH (08:17)
[2019-09-12] MEDS: DOCUSATE SODIUM 100 MG CAPSULE PO SCH ×2 (08:17→20:16)
[2019-09-12] MEDS: amLODIPine 5 MG TABLET PO SCH (08:17)
[2019-09-12] MEDS: POTASSIUM CHLORIDE 10 MEQ TABLET PO SCH ×2 (08:17→16:58)
[2019-09-12] MEDS: ASPIRIN 81 MG TAB.CHEW PO SCH (08:17)
[2019-09-12] MEDS: FUROSEMIDE 20 MG TABLET PO SCH ×2 (08:17→20:16)
[2019-09-12] MEDS: LOSARTAN 50 MG TABLET PO SCH (08:18)
[2019-09-12] MEDS: METOPROLOL TARTRATE 25 MG TABLET PO SCH ×2 (08:18→20:15)
[2019-09-12] MEDS: CARVEDILOL 12.5 MG TABLET PO SCH ×2 (08:18→16:58)
[2019-09-12] MEDS: MUPIROCIN OINT 2% 22GM NARES SCH ×2 (08:19→20:16)
[2019-09-12] MEDS: ALBUTEROL SULFATE 200 PUFF INHALER INH PRN ×3 (08:22→22:14)
[2019-09-12] MEDS ORDERED: LANSOPRAZOLE 30 MG PO SCH (09:00)
--- NOTE | 2019-09-12 09:56 | Internal Med Progress Note ---
Medical - PN: Subj Patient information: Note initiated : 09/12/19 at 9:54 am Service Date, if different from initiated Date: [] Patient: Tyler Segovia 64 y/o M admitted on 09/10/19 for increased cough and shortness of breath. Chief Complaint: [] Interval history: Patient is a 64-year-old male with a history diabetes, asthma, high blood pressure, and depression who presented to the ER due to shortness of breath. Patient states that he has been having shortness of breath and sore throat over the past 2 days associated with cough with small amount of greenish sputum and voice change. He visited the ER yesterday and was diagnosed with pneumonia. He was discharged to home from the ER with azithromycin. He came back today because of worsening of shortness of breath. In the ER, she was found to have oxygen desaturation, 80+% when he is talking. When I saw this patient in the ER, other than symptoms mentioned above, he denied headache, dizziness, chest pain, abdominal pain, nausea, vomiting, or dysuria. 09/10-patient clinically improved. Improved dysphagia/neck pain and able to swallow better. Stable hemodynamics and vitals. CT soft tissue neck no evidence of abscess. White count downtrending from 24.4-15.7. GPC/GNR sputum exam. LFTs downtrending. On 1 L oxygen. Echo pending. COVID pending. 09/11-patient doing well. No overnight events daily fever chills nausea vomiting. Shortness of breath much improved. No dysphagia. Feels a lot better. Yellow productive sputum. White count down from 24.4-8.8. Afebrile. Ongoing physical therapy and tolerating diet. - Constitutional Vitals: Vital Signs Temp Pulse Resp BP Pulse Ox 97.6 F 61 18 168/70 94 09/12/19 06:53 09/12/19 08:04 09/12/19 08:04 09/12/19 08:04 09/12/19 08:04 Period Temp Pulse Resp BP Sys/Jansen Pulse Ox Last 24 Hr 97.5 F-99 F 45-87 14-29 100-190/59-89 90-98 Intake and Output 09/11/19 09/12/19 09/12/19 21:59 05:59 13:59 Intake Total 480 200 120 Output Total 700 1650 575 Balance -220 -2140 -550 Weight 255 lb 1.6 oz Intake & Output: Intake & Output 09/11/19 09/12/19 09/12/19 21:59 05:59 13:59 Intake Total 480 200 120 Output Total 700 1650 575 Balance -220 1450 -860 Weight 255 lb 1.6 oz Intake: Oral 480 200 120 Output: Void Amount 700 1650 575 Other: Meal Dinner Percent of Meal Consumed 100% Feeding Ability Independent General appearance: no acute distress Exam: Alert oriented Nonlabored breathing No anxiety Nondistended abdomen Medical - PN: Obj Da - Labs CBC & Chem 7: 09/12/19 05:05 09/12/19 05:05 Labs: Abnormal Lab Results 09/12/19 09/12/19 09/11/19 05:05 05:05 04:15 WBC RBC 3.52 L Hgb 11.1 L Hct 34.4 L MCV MCHC RDW MPV 10.5 H Gran % Lymph % (Auto) 12.0 L [place] % (Auto) 12.1 H Gran # Lymph # (Auto) 1.05 L [place] # (Auto) 1.06 H Sodium 132 L Chloride 95 L Glucose 146 H 169 H Calcium AST ALT Alkaline Phosphatase NT-Pro-B Natriuret Pep Albumin 3.0 L Globulin 3.8 H Albumin/Globulin Ratio 0.8 L 09/11/19 09/10/19 09/10/19 04:15 03:50 03:50 WBC 15.7 H 24.4 H RBC 3.43 L 3.33 L Hgb 10.7 L 10.7 L Hct 34.2 L 35.0 L MCV 105.1 H MCHC 30.6 L RDW 14.7 H MPV 10.5 H Gran % 84.5 H 90.3 H Lymph % (Auto) 5.8 L 2.3 L [place] % (Auto) Gran # 13.23 H 22.07 H Lymph # (Auto) 0.91 L 0.57 L [place] # (Auto) 1.19 H 1.63 H Sodium Chloride Glucose 110 H Calcium 8.2 L AST 55 H ALT 50 H Alkaline Phosphatase NT-Pro-B Natriuret Pep Albumin Globulin Albumin/Globulin Ratio 09/10/19 09/09/19 09/09/19 00:10 20:05 20:05 WBC RBC Hgb Hct MCV MCHC RDW MPV Gran % Lymph % (Auto) [place] % (Auto) Gran # Lymph # (Auto) [place] # (Auto) Sodium Chloride Glucose 57 L 189 H Calcium 8.3 L AST 62 H 54 H ALT 53 H 53 H Alkaline Phosphatase 124 H NT-Pro-B Natriuret Pep 509.5 H Albumin Globulin Albumin/Globulin Ratio 09/09/19 20:05 WBC 15.9 H RBC 3.71 L Hgb 11.3 L Hct 36.2 L MCV MCHC RDW MPV Gran % 87.2 H Lymph % (Auto) 5.7 L [place] % (Auto) Gran # 13.88 H Lymph # (Auto) 0.90 L [place] # (Auto) Sodium Chloride Glucose Calcium AST ALT Alkaline Phosphatase NT-Pro-B Natriuret Pep Albumin Globulin Albumin/Globulin Ratio Meds: Medications Hydrocodone Bitart/Acetaminophen ([place]ley 5/325mg) 1 tab PO Q4HP PRN; Protocol PRN Reason: pain Albuterol Sulfate (Ventolin) 1 puff INH Q4-6HP PRN PRN Reason: Shortness Of Breath Last Admin: 09/12/19 08:22 Dose: 1 puff Documented by: Amlodipine Besylate (Norvasc) 5 mg PO DAILY [facility] Last Admin: 09/12/19 08:17 Dose: 5 mg Documented by: Aspirin (Aspirin) 81 mg PO DAILY [facility] Last Admin: 09/12/19 08:17 Dose: 81 mg Documented by: Benzonatate (Tessalon) 100 mg PO TIDP PRN PRN Reason: Cough Last Admin: 09/12/19 08:17 Dose: 100 mg Documented by: [facility] Last Admin: 09/12/19 08:18 Dose: 25 mg Documented by: Dextrose (Dextrose 50%) 0 ml IV UD PRN PRN Reason: Hypoglycemia Diagnostic Test (Pha) (Accu-Chek) 1 each FS ACHS [facility] Last Admin: 09/12/19 06:57 Dose: 1 each Documented by: Docusate Sodium (Colace) 100 mg PO BID [facility] Last Admin: 09/12/19 08:17 Dose: 100 mg Documented by: Enoxaparin Sodium (Lovenox) 40 mg SQ DAILY [facility] Last Admin: 09/12/19 08:16 Dose: 40 mg Documented by: Folic Acid (Folic Acid) 1 mg PO QDAY [facility] Last Admin: 09/12/19 08:17 Dose: 1 mg Documented by: Furosemide (Lasix) 20 mg PO BID [facility] Last Admin: 09/12/19 08:17 Dose: 20 mg Documented by: Gabapentin (Neurontin) 300 mg PO QHS [facility] Last Admin: 09/11/19 21:31 Dose: 300 mg Documented by: Glucose (Insta-Glucose) 15 gm PO PRN PRN PRN Reason: Hypoglycemia Guaifenesin/Codeine Phosphate (Robitussin Ac) 10 ml PO Q4HP PRN PRN Reason: Cough Last Admin: 09/12/19 08:17 Dose: 10 ml Documented by: Hydralazine HCl (Apresoline) 10 mg IV Q4HP PRN PRN Reason: Hypertension Last Admin: 09/10/19 16:03 Dose: 10 mg Documented by: Ceftriaxone Sodium 2 gm/ (Dextrose) 50 mls @ 100 mls/hr IV Q24H [facility]; Protocol Last Admin: 09/12/19 08:16 Dose: 100 mls/hr Documented by: Insulin Glargine (Lantus) 40 unit SQ QDAY [facility] Last Admin: 09/12/19 08:16 Dose: 40 unit Documented by: Insulin Human Lispro (Humalog) 0 unit SQ ACHS [facility]; Protocol Last Admin: 09/12/19 08:15 Dose: 1 unit Documented by: Insulin Human Lispro (Humalog) 3 unit SQ TIDAC [facility] Last Admin: 09/12/19 08:15 Dose: 3 unit Documented by: Losartan Potassium (Cozaar) 100 mg PO QDAY [facility] Last Admin: 09/12/19 08:18 Dose: 100 mg Documented by: Metoprolol Tartrate (Lopressor) 25 mg PO BID [facility] Last Admin: 09/12/19 08:18 Dose: 25 mg Documented by: Mupirocin (Bactroban Oint 2%) 1 dose NARES BID [facility] Last Admin: 09/12/19 08:19 Dose: 1 dose Documented by: Ondansetron HCl (Zofran Odt) 4 mg SL Q4-6HP PRN PRN Reason: Nausea Pantoprazole Sodium (Protonix) 40 mg PO QAMAC [facility] Last Admin: 09/12/19 06:57 Dose: 40 mg Documented by: Paroxetine HCl (Paxil) 10 mg PO QHS [facility] Last Admin: 09/11/19 21:31 Dose: 10 mg Documented by: Potassium Chloride (Kdur) 10 meq PO BIDCC [facility] Last Admin: 09/12/19 08:17 Dose: 10 meq Documented by: Promethazine HCl (Phenergan) 12.5 mg PO Q6HP PRN; Protocol PRN Reason: Nausea And Vomiting Sodium Chloride (Saline Flush) 10 ml IV Q8 [facility] Last Admin: 09/12/19 05:08 Dose: 10 ml Documented by: Medical - PN: A/P - Time Spent With Patient Total time spent is greater than 50% in coordination of care (as documented) at patient's floor/unit and/or counseling patient: 25 - 35 minutes - Narrative A/P Narrative: * Right-sided pneumonia likely community-acquired versus COVID. Await test results. Continue antibiotic coverage. White count downtrending from 24-8. * Acute hypoxia respiratory failure improving. On 1 L O2 * Dysphagia with laryngitis clinically improving on antibiotic coverage. No CT evidence of soft tissue abscess. * History of asthma continue bronchodilators * DM type II continue basal panel insulin * Elevated LFTs clinically improving * Suboptimally controlled hypertension Continue losartan/Coreg. * GERD continue PPI * Anxiety disorder continue SSRI * Full code * Prophylaxis Lovenox Plan * Continue antibiotic coverage * Continue pre-existing mental condition management home meds * PT OT/nutrition support * Discharge planning Medical - PN: Qual - VTE Deep Vein Thrombosis/Pulmonary Embolism Present on Admission: No
[2019-09-12] MEDS: hydrALAZINE 20 MG/ML VIAL IV PRN (16:58)
[2019-09-12] MEDS: GABAPENTIN 300 MG CAPSULE PO SCH (20:15)
[2019-09-12] MEDS: PARoxetine 20 MG TABLET PO SCH (20:20)
[2019-09-12] MEDS ORDERED: BENZONATATE 100 MG CAPSULE PO PRN (21:01)
[2019-09-12] MEDS ORDERED: DEXTROSE 50% 50 ML VIAL IV PRN (21:01)
[2019-09-12] MEDS ORDERED: guaiFENesin/CODEINE 10 ML UDC PO PRN (21:01)
[2019-09-12] MEDS ORDERED: HYDROcodone/APAP 5/325MG TABLET PO PRN (21:01)
[2019-09-12] MEDS ORDERED: hydrALAZINE 20 MG/ML VIAL IV PRN (21:01)
[2019-09-12] MEDS ORDERED: PROMETHAZINE 25 MG TABLET PO PRN (21:01)
[2019-09-12] MEDS ORDERED: DEXTROSE 31 GM ORAL.SUSP PO PRN (21:01)
[2019-09-12] MEDS ORDERED: ONDANSETRON 4 MG ODT TABLET SL PRN (21:01)
[2019-09-13 06:31] LABS: Hematocrit 37.3 % (40.1-51.0); Mean Cell Volume 97.6 fL (80.0-100.0); Mean Corpuscular HGB Conc 32.2 g/dL (31.0-36.0); Mean Platelet Volume 10.2 fL (7.4-10.4); RBC 3.82 M/mcL (4.63-6.08); Red Cell Distribution Width 13.2 % (11.5-14.5); WBC 8.9 K/mcL (4.50-11.00)
[2019-09-13 06:37] LABS: Basophils # (Auto) 0.06 K/mcL (0.00-0.30); Basophils % (Auto) 0.7 % (0.0-2.0); Eosinophils # (Auto) 0.27 K/mcL (0.00-0.70); Eosinophils % (Auto) 3.2 % (0.0-7.0); Granulocytes % (Auto) 71.7 % (38.0-78.0); Lymphocytes # (Auto) 0.98 K/mcL (1.50-4.80); Lymphocytes % (Auto) 11.5 % (15.5-49.0); Monocytes % (Auto) 12.9 % (1.0-12.0); Platelet Count 291 K/mcL (140-440)
[2019-09-13 07:01] LABS: ALT/SGPT 28 U/l (0-40); AST/SGOT 23 U/l (0-37); Albumin 3.5 gm/dL (3.2-5.2); Albumin/Globulin Ratio 0.9 (1.0-2.3); Alkaline Phosphatase 108 U/L (39-117); Bilirubin,Total 0.6 mg/dL (0.0-1.0); Blood Urea Nitrogen 12 mg/dl (8-23); Calcium 9.2 mg/dl (8.6-10.4); Carbon Dioxide 26 mmol/L (22-30); Globulin 3.9 gm/dL (2.2-3.7); Glomerular Filtration Rate 99; Glucose 157 mg/dL (70-105)
[2019-09-13 07:08] LABS: Chloride 93 mmol/L (96-108)
[2019-09-13] MEDS ORDERED: INSULIN LISPRO 1 UNIT/0.01 ML UNIT SQ SCH ×2 (07:30)
[2019-09-13] MEDS ORDERED: PANTOPRAZOLE 40 MG TABLET PO SCH (07:30)
[2019-09-13] MEDS ORDERED: CARVEDILOL 12.5 MG TABLET PO SCH (08:00)
[2019-09-13] MEDS ORDERED: POTASSIUM CHLORIDE 10 MEQ TABLET PO SCH (08:00)
[2019-09-13] MEDS: 0.9 % SODIUM CHLORIDE 10 ML SYRINGE IV SCH (08:28)
[2019-09-13] MEDS ORDERED: INSULIN GLARGINE, HUMAN 1 UNIT/0.01 ML SQ SCH (09:00)
[2019-09-13] MEDS ORDERED: ENOXAPARIN 40 MG/0.4 ML SYRINGE SQ SCH (09:00)
[2019-09-13] MEDS ORDERED: MUPIROCIN OINT 2% 22GM NARES SCH (09:00)
[2019-09-13] MEDS ORDERED: amLODIPine 5 MG TABLET PO SCH (09:00)
[2019-09-13] MEDS ORDERED: METOPROLOL TARTRATE 25 MG TABLET PO SCH (09:00)
[2019-09-13] MEDS ORDERED: LOSARTAN 50 MG TABLET PO SCH (09:00)
[2019-09-13] MEDS ORDERED: DOCUSATE SODIUM 100 MG CAPSULE PO SCH (09:00)
[2019-09-13] MEDS ORDERED: FUROSEMIDE 20 MG TABLET PO SCH (09:00)
[2019-09-13] MEDS ORDERED: cefTRIAXone 2 GM in DEXTROSE 5% IN WATER 50 ML IV SCH (09:00)
[2019-09-13] MEDS ORDERED: ASPIRIN 81 MG TAB.CHEW PO SCH (09:00)
[2019-09-13] MEDS ORDERED: FOLIC ACID 1 MG TABLET PO SCH (09:00)
[2019-09-13] MEDS: ALBUTEROL SULFATE 200 PUFF INHALER INH PRN (10:05)
--- NOTE | 2019-09-13 10:08 | Discharge Summary ---
Medical - DS: Prov Patient information: Note initiated : 09/13/19 at 10:04 am Service Date, if different from initiated Date: [] Patient: Tyler Segovia 64 y/o M admitted on 09/10/19 for increased cough and shortness of breath. Chief Complaint: [] Date of admission: 09/10/19 00:19 Discharge date: 09/13/19 Primary care physician: Clint Pepe Consults: 09/09/19 Consult to Physician [CONS] Stat Comment: Consulting Provider: Vini Cannon Reason For Exam: Physician to Consult Medical - DS: Meds - Discharge Medications Prescriptions: Cefdinir 300 mg PO BID #10 cap Transmission Status: Pending to [facility] 2005 Active and Home Medications: Home Medications nitroglycerin 0.4 mg sublingual tablet 0.4 mg SUBLINGUAL Q5-15M PRN 02/22/19 [History Confirmed 09/13/19 Last Taken 07/15/17] glucagon 1 mg injection kit 1 mg .ROUTE .COMPLEX 04/14/19 [History Confirmed 09/13/19 Last Taken Unknown] triamcinolone acetonide 55 mcg nasal spray aerosol 1 spray INTRANASAL QDAY PRN 04/14/19 [History Confirmed 09/10/19 Last Taken 07/16/19] aspirin 81 mg tablet,delayed release 81 mg PO QDAY #90 tab 04/27/19 [Rx Confirmed 09/09/19 Last Taken 08/06/19] folic acid 1 mg tablet 1 mg PO QDAY #90 tab 04/27/19 [Rx Confirmed 09/09/19 Last Taken 08/06/19] albuterol sulfate 90 mcg/actuation aerosol inhaler 2 puff INHALATION Q6H PRN #8.5 g 05/01/19 [Rx Confirmed 09/09/19 Last Taken 08/07/18] carvedilol 25 mg tablet 25 mg PO BID #180 tab 06/20/19 [Rx Confirmed 09/09/19 Last Taken 08/06/19] insulin aspart U-100 100 unit/mL (3 mL) subcutaneous pen 3 unit SUB-Q TID #15 ml 06/20/19 [Rx Confirmed 09/09/19 Last Taken 08/06/19] lansoprazole 15 mg capsule,delayed release 30 mg PO QDAY #60 cap 06/20/19 [Rx Confirmed 09/10/19 Last Taken 08/06/19] losartan 100 mg tablet 100 mg PO QDAY #90 tab 06/20/19 [Rx Confirmed 09/10/19 Last Taken 08/06/19] paroxetine HCl 10 mg tablet 10 mg PO QHS #30 tab 06/20/19 [Rx Confirmed 09/10/19 Last Taken 08/06/19] pen needle, diabetic 32 gauge x 32" See Rx Instructions .ROUTE .MEDSUPPLY #100 each 07/10/19 [Rx Confirmed 09/13/19 Last Taken 09/08/19] lancets 30 gauge See Rx Instructions .ROUTE .MEDSUPPLY #100 each 08/03/19 [Rx Confirmed 09/09/19 Last Taken 08/06/19] Insulin Glargine,Hum.rec.anlog [Lantus Solostar] 40 unit SUBCUT QDAY 08/06/19 [History Confirmed 09/09/19 Last Taken 08/06/19] indomethacin 50 mg capsule 50 mg PO .COMPLEX #30 cap 08/25/19 [Rx Confirmed 09/09/19 Last Taken Unknown] furosemide 20 mg tablet 20 mg PO BID #60 tab 09/06/19 [Rx Confirmed 09/09/19 Last Taken Unknown] gabapentin 300 mg capsule 300 mg PO QHS #30 cap 09/06/19 [Rx Confirmed 09/09/19 Last Taken Unknown] hydrocodone 5 mg-acetaminophen 325 mg tablet 1 tab PO Q4H PRN #180 tab 09/06/19 [Rx Confirmed 09/09/19 Last Taken Unknown] potassium chloride 10 mEq capsule,extended release 10 meq PO BID #60 cap 09/06/19 [Rx Confirmed 09/10/19 Last Taken Unknown] Azithromycin [Zithromax] 0 mg PO DAILY #6 tab 09/08/19 [Rx Confirmed 09/09/19 Last Taken Unknown] Ondansetron [Zofran ODT] 4 mg SL Q4-6HP PRN #10 tab 09/08/19 [Rx Confirmed 09/10/19 Last Taken Unknown] Cefdinir 300 mg PO BID #10 cap 09/13/19 [Rx Last Taken Unknown] Medical - DS: Hosp Hospital Course: Discharge diagnosis * Right-sided pneumonia likely community-acquired white count down from 24-8. Clinically resolved. Continue recent 5 days oral antibiotic * Acute hypoxic respiratory failure improving. Now on room air. * Dysphagia with laryngitis clinically improving on antibiotic coverage. No CT evidence of soft tissue abscess. Continue resolved * History of asthma continue bronchodilators * DM type II continue basal panel insulin * Elevated LFTs clinically improving * History of hypertension stable on home dose losartan/Coreg. * GERD continue PPI * Anxiety disorder continue SSRI brief hospital course Patient is a 64-year-old male with a history diabetes, asthma, high blood pressure, and depression who presented to the ER due to shortness of breath. Patient states that he has been having shortness of breath and sore throat over the past 2 days associated with cough with small amount of greenish sputum and voice change. He visited the ER yesterday and was diagnosed with pneumonia. He was discharged to home from the ER with azithromycin. He came back today because of worsening of shortness of breath. In the ER, she was found to have oxygen desaturation, 80+% when he is talking. When I saw this patient in the ER, other than symptoms mentioned above, he denied headache, dizziness, chest pain, abdominal pain, nausea, vomiting, or dysuria. 09/10-patient clinically improved. Improved dysphagia/neck pain and able to swallow better. Stable hemodynamics and vitals. CT soft tissue neck no evidence of abscess. White count downtrending from 24.4-15.7. GPC/GNR sputum exam. LFTs downtrending. On 1 L oxygen. Echo pending. COVID pending. 09/11-patient doing well. No overnight events daily fever chills nausea vomiting. Shortness of breath much improved. No dysphagia. Feels a lot better. Yellow productive sputum. White count down from 24.4-8.8. Afebrile. Ongoing physical therapy and tolerating diet. 09/12-patient doing well. No overnight events. No concerns per staff. Tolerating diet. No dysphagia. Dysphonia improved. No cough or shortness of breath. Off oxygen. Ambulating and tolerating physical therapy. Discharging home with advised to follow-up with primary care physician. Discharge instructions as below Discharge diagnosis: . - Time Spent with Patient Total time spent providing and/or coordinating discharge services: Greater than 30 minutes Medical - DS: Exam - Constitutional Vitals: Vital Signs Temp Pulse Pulse Resp BP BP Pulse Ox 09/13/19 08:00 98.8 F 72 22 182/84 92 09/13/19 03:11 98.5 F 74 24 H 177/84 91 09/12/19 23:04 98.7 F 68 22 146/80 93 09/12/19 21:35 93 09/12/19 20:01 97.6 F 73 16 159/95 94 09/12/19 20:00 98 09/12/19 18:06 69 13 96 09/12/19 18:01 79 29 H 151/88 97 09/12/19 17:40 27 H 150/72 93 09/12/19 16:32 75 19 183/99 96 09/12/19 16:30 77 18 97 09/12/19 16:01 97 F 71 20 165/70 98 09/12/19 14:04 68 16 91 09/12/19 14:01 102 H 24 H 145/76 09/12/19 12:36 75 18 96 09/12/19 12:01 98 F 73 18 162/90 99 09/12/19 10:07 76 20 163/78 95 09/12/19 10:06 73 16 97 Intake and Output 09/12/19 09/13/19 09/13/19 21:59 05:59 13:59 Intake Total 730 1480 Output Total 1500 1450 Balance -770 30 Intake: IV 250 Zithromax 500 mg In Dextrose 5% 250 in Water 250 ml @ 250 mls/hr IV Q24H [facility] Rx#:[id number] Oral 480 1480 Output: Void Amount 1500 1450 Other: Meal Dinner Nourishment/Supplement Percent of Meal Consumed 100% 100% Feeding Ability Independent Independent Urine Appearance Clear Clear Urine Color Bright Yellow Bright Yellow Urine Odor Normal Normal Stool Size Large Stool Color Brown Stool Consistency Soft Formed Weight 252 lb Medical - DS: Data Labs on day of discharge: Labs from last 24 hours 09/13/19 09/13/19 05:20 05:20 WBC 8.9 RBC 3.82 L Hgb 12.0 L Hct 37.3 L MCV 97.6 MCH 31.4 MCHC 32.2 RDW 13.2 Plt Count 291 MPV 10.2 Gran % 71.7 Lymph % (Auto) 11.5 L [place] % (Auto) 12.9 H Eos % (Auto) 3.2 Baso % (Auto) 0.7 Gran # 6.09 Lymph # (Auto) 0.98 L [place] # (Auto) 1.10 H Eos # (Auto) 0.27 Baso # (Auto) 0.06 Sodium 132 L Potassium 4.5 Chloride 93 L Carbon Dioxide 26 Anion Gap 13.0 BUN 12 Creatinine 0.7 GFR Calculation 99 Glucose 157 H Calcium 9.2 Total Bilirubin 0.6 AST 23 ALT 28 Alkaline Phosphatase 108 Total Protein 7.4 Albumin 3.5 Globulin 3.9 H Albumin/Globulin Ratio 0.9 L Preliminary micro results at discharge 09/10/19 00:14 Blood Culture - Preliminary Blood 09/10/19 00:10 Blood Culture - Preliminary Blood Medical - DS: A/P - Patient/Caregiver Discharge Instructions Diet: Regular Diet Additional Instructions: Follow-up PCP in 5 days I recommend primary care physician to check CBC BMP UA as a posthospital follow-up in 1 week. Antibiotics for additional 5 days All meals on chair sitting upright at 90 degrees to prevent aspiration Return to ER if worsening fever chills shortness of breath, diarrhea, bleeding Review risk and side effect profile of medications including antibiotics. Side effect may include mild to severe reaction including rash, diarrhea, cdiff and even which can be prevented by close follow-up with PCP and monitoring for side effects Refrain from smoking and alcohol Continue diet and activity as advised Discussed importance of medication adherence Please review medication list with patient prior to discharge Please schedule follow-up with PCP/Providers prior to discharge and provide printouts Prescriptions: Cefdinir 300 mg PO BID #10 cap Transmission Status: Pending to [facility] 2005 - Follow up Plan Follow up with: Clint Pepe MD [Primary Care Provider] - Disposition: Home, Self-Care Prognosis: Fair Rehab Potential: Fair I certify that the patient requires SNF services: No Overall status at discharge: patient is progressing back to baseline Medical - DS: Qual - VTE Deep Vein Thrombosis/Pulmonary Embolism Present on Admission: No
[2019-09-13] MEDS ORDERED: GABAPENTIN 300 MG CAPSULE PO SCH (21:00)
[2019-09-13] MEDS ORDERED: PARoxetine 20 MG TABLET PO SCH (21:00)
== END 2019-09-13 12:15 | disposition home or self-care (01) | DRG 193 ==
LOC: ED 19:38 → ICU 09-10 00:19 → MEDSUR 09-12 21:00
PROVIDERS: ADMIT Internal Medicine; ATTEND Internal Medicine